=== PATIENT | female | born 1960 | race Caucasian/White ===

== ENCOUNTER 2017-05-13 17:54 | Emergency (ER) | payer MEDICAID ==
[2017-05-13 17:59] VITALS: TEMP 97.5
--- NOTE | 2017-05-13 18:25 | EDPHY ---
General Narrative: CHIEF COMPLAINT: Left knee injury HISTORY OF PRESENT ILLNESS: Patient complains of left knee pain. She was walking with her friend earlier today around 2:30 p.m.. She said a dog struck on the left knee. She does not know exactly what happened her which where her knee bent. She knows she felt a sudden onset of pain and heard a pop sensation. She has pain in the entire knee that radiates into the back of the knee and up into the thigh. No direct trauma elsewhere. The pain is [id number] rest. Moderate to severe when she walks. Able to bear weight but with a limp. No numbness or tingling. No laceration or abrasion. No other associated complaints or modifying factors. ESTABLISHED ORTHOPEDIST: None locally. REVIEW OF SYSTEMS: Ten systems reviewed and are negative unless otherwise noted in the HPI PAST MEDICAL HISTORY: The hypothyroid, osteoporosis, insulin-dependent type 1 diabetic PAST SURGICAL HISTORY: Right total hip arthroplasty, left knee ACL repair remotely SOCIAL HISTORY: Nonsmoker. Occasional alcohol. No drug use. 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 Pupils equal round reactive Cardiovascular: Pulses normal throughout. Brisk cap refill Neurological: A&O, light sensation intact on the odonnell and top of the left foot. Ankle any strength symmetric. Skin: Warm and dry, no rash. No petechiae or purpura. Extremities: Tenderness about the entire left knee. There is no obvious deformity on 1st examination. I have not tested range of motion prior to the x- ray. She is neurovascular intact distal to this with no tenderness of the left foot or calcaneus or hip. Psychiatric: Mood and affect normal DIFFERENTIAL DIAGNOSES: Including but not limited to sprain, strain, fracture, dislocation, ACL injury, PCL injury, collateral ligament injury MDM: 6:10 p.m. Acute sprain left knee with moderate pain. Knee exam limited 1st by pain. I have ordered the x-ray. 6:55 p.m. I reviewed the x-ray and there appears to be a tibial plateau fracture of the medial compartment. All discussed with Dr. Holley and the on-call orthopedist. 7:09 p.m. Case discussed with orthopedic PA. She will review the film and discuss with Dr. Carroll. 7:15 p.m. Case discussed with on-call orthopedist Dr. Carroll. He recommends CT scan of the knee. He recommends brace, crutches, nonweightbearing and follow up in his office early this week. No further recommendation. 7:20 p.m. I discussed this with the patient and informed her of the fracture. We discussed CT scan she agrees to proceed. She is in no acute distress and remains neurovascular intact distally. 8:[address] scan of the extremity reveals tibial plateau fracture with no other acute findings. The patient will be discharged home stable condition. She will be placed in a knee immobilizer and crutches. Strict nonweightbearing instructions until seen by Orthopedics for definitive care. Information provided for the on-call orthopedist. Pain medication prescription provided as well as a short course of Percocet prepack. We discussed ED precautions. I have answered all her questions. She remains neurovascular intact and discharged home stable condition. SUPERVISION: This patient was independently evaluated without direct involvement of or examination by the attending physician. ED Precautions: Worsening pain. Erythema, edema, cyanosis, pallor, paresthesia or anesthesia. - Diagnostics Imaging Results: Imaging Impressions Knee X-Ray 05/13/17 18:12 Impression: Mildly displaced medial tibial plateau fracture. Extremity CT 05/13/17 19:19 Impression: Mildly impacted medial tibial plateau fracture. Findings discussed with Aleksandr Hogan 05/13/2017 at 21:18. - History Smoking Status: Former smoker - Objective Vital Signs: Initial Vital Signs Temperature (C) 97.5 F 05/13/17 17:55 Heart Rate 71 05/13/17 17:55 Respiratory Rate 18 05/13/17 17:55 Blood Pressure 159/65 H 05/13/17 17:55 O2 Sat (%) 96 05/13/17 17:55 O2 Delivery Mode Room Air Allergies/Adverse Reactions: No Known Allergies Allergy (Unverified 05/13/17 17:59) Home Medications: Medication Instructions Recorded INSULN ASP PRT/INSULIN ASPART 100 unit SQ 05/13/17 [Novolog Mix 70-30 Cartridge] Insulin Pump, Patient Own 1 ea [facility] [place] 05/13/17 Levothyroxine [Synthroid 100 mcg 100 mcg PO DAILY06 05/13/17 (*)] Risedronate Sodium [Actonel] 150 mg PO 05/13/17 oxyCODONE HCL/ACETAMINOPHEN 1 each PO Q4-6PRN PRN #11 tablet 05/13/17 [Percocet 5-325 mg Tablet] Medications Given: Discontinued Medications Oxycodone/Acetaminophen (Percocet 5/325mg Prepack#4) 1 btl TAKEHOME EDNOW ONE Stop: 05/13/17 20:17 Last Admin: 05/13/17 20:19 Dose: 1 btl Departure - Departure Disposition: Home, Routine, Self-Care Clinical Impression: Left medial tibial plateau fracture Qualifiers: Encounter type: initial encounter Fracture type: closed Qualified Code(s): S82.132A - Displaced fracture of medial condyle of left tibia, initial encounter for closed fracture Condition: Good Instructions: Oxycodone/Acetaminophen (By mouth), Leg Fracture (ED) Additional Instructions: 1. strict nonweightbearing until seen by orthopedist 2. Anti-inflammatories [id number] as discussed as no 3. Pain medication as prescribed as needed 4. ED precautions as discussed Referrals: Eduardo Carroll MD [Medical Doctor] - As per Instructions Prescriptions: oxyCODONE HCL/ACETAMINOPHEN [Percocet 5-325 mg Tablet] 1 each PO Q4-6PRN PRN # 11 tablet PRN Reason: Pain, Breakthrough
[2017-05-13] MEDS ORDERED: OXYCODONE/APAP 5/325MG PREPACK#4 BTL TAKEHOME ONE (20:16)
[2017-05-13 20:30] VITALS: BP 130/74; PULSE 70; RESP 16; O2SAT 97
== END 2017-05-13 20:29 | disposition home or self-care (01) ==
DX: S82.132A Displaced fracture of medial condyle of left tibia, initial encounter for closed fracture (principal); E10.9 Type 1 diabetes mellitus without complications; Z87.891 Personal history of nicotine dependence; W54.1XXA Struck by dog, initial encounter; Y99.8 Other external cause status; Y93.01 Activity, walking, marching and hiking
CPT/HCPCS: L1830